=== PATIENT | female | born 1995 | race Caucasian/White ===

== ENCOUNTER 2019-07-13 17:41 | Emergency (ER) | payer OTHER ==
[2019-07-13 17:59] VITALS: TEMP 98.6
[2019-07-13] MEDS ORDERED: KETOROLAC TROMETHAMINE 30 MG/1 ML VIAL IVPUSH ONE (18:53)
[2019-07-13] MEDS ORDERED: SODIUM CHLORIDE 1,000 ML IV STA (18:53)
[2019-07-13] MEDS ORDERED: ONDANSETRON 4 MG/2 ML VIAL IVPUSH ONE (18:53)
--- NOTE | 2019-07-13 19:56 | PDOC ---
*Physical Exam - Vital Signs Last Vital Signs Temp Pulse Resp BP Pulse Ox 98.6 F 59 L 16 124/67 99 07/13/19 17:55 07/13/19 17:55 07/13/19 17:55 07/13/19 17:55 07/13/19 17:55 ED Treatment Course - LABORATORY CBC & Chemistry Diagram: 07/13/19 20:00 07/13/19 20:00 Medical Decision Making - Medical Decision Making 07/13/19 19:56 Patient seen by the advanced practice provider under my supervision. Ancillary testing reviewed as necessary. I agree with plan as outlined by the advanced practice provider. Discharge - Discharge Information Problems reviewed: Yes Clinical Impression/Diagnosis: Elevated lipase Abdominal pain Qualifiers: Abdominal location: epigastric Qualified Code(s): R10.13 - Epigastric pain Nausea and vomiting Qualifiers: Vomiting type: unspecified Vomiting Intractability: unspecified Qualified Code( s): R11.2 - Nausea with vomiting, unspecified Disposition: HOME - Additional Discharge Information Prescriptions: Famotidine [Pepcid] 40 mg PO DAILY #30 tablet Ondansetron [Zofran *Odt*] 4 mg SL BID PRN #14 od.tablet PRN Reason: Nausea And/Or Vomiting - Follow up/Referral Referrals: Abraham Barron DO [Staff Physician] - Call tomorrow Cyn Church MD [Primary Care Provider] - - Patient Discharge Instructions Patient Printed Discharge Instructions: DI for Vomiting -- Adult Additional Instructions: Drink plenty of fluids start a BRAT ( bananas, rice apples toast) 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 Avoid eating greasy food. - Post Discharge Activity Work/Back to School Note: Back to Work
--- NOTE | 2019-07-13 20:03 | PDOC ---
History of Present Illness - General Chief Complaint: Nausea/Vomiting Stated Complaint: NAUSEA/VOMITING Time Seen by Provider: 07/13/19 19:53 History Source: Patient - History of Present Illness Initial Comments: 07/13/19 20:35 24 year old female Nausea, vomiting, epigastric pain, patient reports that symptoms are worse during the menstrual period and it has been happening for october 2018. patient reports that symptoms are worse this month. denies urinary symptoms. chest pain, dizziness, diarrhea, constipatoin Patient reports that she smokes marijuana everyday. LMP 07/10/19 Past History - Past Medical History Allergies/Adverse Reactions: Allergies Allergy/AdvReac Type Severity Reaction Status Date / Time cyclobenzaprine AdvReac Rash Verified 07/13/19 20:03 Home Medications: Ambulatory Orders Famotidine [Pepcid] 40 mg PO DAILY #30 tablet 07/13/19 Ondansetron [Zofran *Odt*] 4 mg SL BID PRN #14 od.tablet 07/13/19 - Psycho Social/Smoking Cessation Hx Smoking History: Never smoked Information on smoking cessation initiated: No Hx Alcohol Use: No Drug/Substance Use Hx: No Review of Systems - Review of Systems Able to Perform ROS?: Yes Is the patient limited [place] proficient: No Constitutional: No: Symptoms Reported, See HPI, Chills, Diaphoresis, Fever, Loss of Appetite, Malaise, Night Sweats, Weakness, Weight Stable, Unintentional Wgt. Loss, Unexplained wgt Loss, Other HEENTM: No: Symptoms Reported, See HPI, Eye Pain, Blurred Vision, Tearing, Recent change in vision, Double Vision, Cataracts, Ear Pain, Ocular Prothesis, Ear Discharge, Nose Pain, Nose Congestion, Tinnitus, Nose Bleeding, Hearing Loss , Throat Pain, Throat Swelling, Mouth Pain, Dental Problems, Difficulty Swallowing, Mouth Swelling, Other ABD/GI: Yes: Nausea, Vomiting, Abdominal cramping. No: Symptoms Reported, See HPI, Abdominal Distended, Abd. Pain w/ defecation, Blood Streaked Bowels, Constipated, Diarrhea, Difficulty Swallowing, Poor Appetite, Poor Fluid Intake, Rectal Bleeding, Indigestion, Tarry Stools, Other : No: Symptoms Reported, See HPI, Burning, Dysuria, Discharge, Frequency, Flank Pain, Hematuria, Incontinence, Pain, Urgency, Testicular Mass, Testicular Swelling, Lesions, Testicular Pain, Other *Physical Exam - Vital Signs Last Vital Signs Temp Pulse Resp BP Pulse Ox 98.6 F 59 L 16 124/67 99 07/13/19 17:55 07/13/19 17:55 07/13/19 17:55 07/13/19 17:55 07/13/19 17:55 - Physical Exam General Appearance: Yes: Appropriately Dressed Respiratory/Chest: positive: Lungs Clear, Normal Breath Sounds Cardiovascular: positive: Regular Rhythm, Regular Rate Neurologic: positive: Fully Oriented, Alert ED Treatment Course - LABORATORY CBC & Chemistry Diagram: 07/13/19 20:00 07/13/19 20:00 ED Progress Note - Progress Note Progress Note: 07/14/19 02:41 A: nausea and vomiting; epigastric abdominal pain P: cbc cmp lipase elevated ( close GI follow up) IVF zofran pepcid 07/14/19 02:42 Medical Decision Making - Medical Decision Making 07/13/19 21:19 no vomiting in the ED> reports pain is better. no abdominal pain on exam now. lipase slightly elevated. Discharge - Discharge Information Problems reviewed: Yes Clinical Impression/Diagnosis: Elevated lipase Abdominal pain Qualifiers: Abdominal location: epigastric Qualified Code(s): R10.13 - Epigastric pain Nausea and vomiting Qualifiers: Vomiting type: unspecified Vomiting Intractability: unspecified Qualified Code( s): R11.2 - Nausea with vomiting, unspecified Condition: Stable Disposition: HOME - Additional Discharge Information Prescriptions: Famotidine [Pepcid] 40 mg PO DAILY #30 tablet Ondansetron [Zofran *Odt*] 4 mg SL BID PRN #14 od.tablet PRN Reason: Nausea And/Or Vomiting - Follow up/Referral Referrals: Cyn Church MD [Primary Care Provider] - Abraham Barron DO [Staff Physician] - Call tomorrow - Patient Discharge Instructions Patient Printed Discharge Instructions: DI for Vomiting -- Adult Additional Instructions: Drink plenty of fluids start a BRAT ( bananas, rice apples toast) 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 Avoid eating greasy food. - Post Discharge Activity Work/Back to School Note: Back to Work
[2019-07-13 20:25] LABS: BASO % 0.6 % (0-2.0); EOS % 0.2 % (0-4.5); HEMATOCRIT 40.8 % (32.4-45.2); HEMOGLOBIN 13.7 GM/dL (10.7-15.3); LYMPH % 31.5 % (8-40); MCH 32.4 pg (25.7-33.7); MCHC 33.6 g/dl (32.0-36.0); MEAN CELL VOLUME 96.6 fl (80-96); MEAN PLT VOLUME 8.2 fl (7.5-11.1); MONO % 6.6 % (3.8-10.2); NEUT % 61.1 % (42.8-82.8); PLATELET COUNT 274 K/MM3 (134-434); RBC 4.22 M/mm3 (3.60-5.2); RDW 13.9 % (11.6-15.6); WHITE BLOOD COUNT 5.4 K/mm3 (4.0-10.0)
[2019-07-13] MEDS ORDERED: FAMOTIDINE 20 MG/50 ML IVPB 20 MG/50 ML MG IVPB ONE (20:40)
[2019-07-13 21:09] LABS: ALBUMIN 3.9 g/dl (3.4-5.0); BILIRUBIN,TOTAL 0.4 mg/dL (0.2-1); BLOOD UREA NITROGEN 12.8 mg/dL (7-18); CREATININE 0.7 mg/dL (0.55-1.3); POTASSIUM 3.4 mmol/L (3.5-5.1); TOT PROT 7.2 g/dl (6.4-8.2)
[2019-07-13 21:49] LABS: COCAINE, UR NEGATIVE ng/ml (CUTOFF=300); HYALINE CASTS 15 /lpf (0-8); METHADONE, UR NEGATIVE ng/ml (CUTOFF=300); OPIATES, URI NEGATIVE ng/ml (CUTOFF=300); PHENCYCLIDINE,URINE NEGATIVE ng/ml (CUTOFF=25); URINE AMPHETAMINES NEGATIVE ng/ml (CUTOFF=500); URINE APPEARANCE CLEAR; URINE BACTERIA 20.5 /hpf (NEGATIVE); URINE BARBITURATES NEGATIVE ng/ml (CUTOFF=200); URINE BENZODIAZEPINES NEGATIVE ng/ml (CUTOFF=200); URINE BILIRUBIN NEGATIVE (NEGATIVE); URINE COLOR DK YELLOW; URINE GLUCOSE (UA) NEGATIVE (NEGATIVE); URINE KETONE 3+ (NEGATIVE); URINE LEUK ESTERASE NEGATIVE (NEGATIVE); URINE NITRITE NEGATIVE (NEGATIVE); URINE PROTEIN TRACE (NEGATIVE); URINE RBC 2 /hpf (0-4); URINE WBC 3 /hpf (0-5)
[2019-07-13] MEDS ORDERED: METOCLOPRAMIDE HCL INJECTION 10 MG/2 ML VIAL IVPB ONE (22:22)
[2019-07-13] MEDS ORDERED: METOCLOPRAMIDE HCL INJECTION 10 MG/2 ML VIAL ONE (22:38)
[2019-07-14 00:17] VITALS: BP 110/78; PULSE 60
== END 2019-07-13 23:40 | disposition home or self-care (01) ==
LOC: JER 17:41
PROC: 3E0337Z Introduction of Electrolytic and Water Balance Substance into Peripheral Vein, Percutaneous Approach (ICD-10-PCS; principal; 2019-07-13)
PROC: 3E033GC Introduction of Other Therapeutic Substance into Peripheral Vein, Percutaneous Approach (ICD-10-PCS; 2019-07-13)
PROC: 3E033GC Introduction of Other Therapeutic Substance into Peripheral Vein, Percutaneous Approach (ICD-10-PCS; 2019-07-13)
PROC: 3E0333Z Introduction of Anti-inflammatory into Peripheral Vein, Percutaneous Approach (ICD-10-PCS; 2019-07-13)
PROC: 3E033GC Introduction of Other Therapeutic Substance into Peripheral Vein, Percutaneous Approach (ICD-10-PCS; 2019-07-13)
DX: R74.8 Abnormal levels of other serum enzymes (principal); R10.13 Epigastric pain; R11.2 Nausea with vomiting, unspecified; F12.90 Cannabis use, unspecified, uncomplicated
CPT/HCPCS: 36415; 80053; 80307; 81003; 83690; 84703; 85025; 96361; 96365; 96375; 99284-25; J7030